=== PATIENT | male | born 1935 | race Caucasian/White ===

== ENCOUNTER 2018-04-27 17:04 | Inpatient (IN) | payer MEDICARE, OTHER, MEDICAID ==
[2018-04-27] MEDS ORDERED: Sodium Chloride 0.9% 5 ML Syringe FLUSH PRN ×2 (17:12→18:59)
--- NOTE | 2018-04-27 17:18 | EDM.PDOC ---
ED HPI GENERAL MEDICAL PROBLEM - General Chief Complaint: General Stated Complaint: LETHARGIC Time Seen by Provider: 04/27/18 17:05 Source of Information: Reports: EMS, Long-Term Records History Limitations: Reports: Altered Mental Status - History of Present Illness INITIAL COMMENTS - FREE TEXT/NARRATIVE: 82 YO WM with PMH of Dementia, Atrial Fib, and NIDDM sent to ER from assisted living facility with concerns for low blood pressure and lethargy. BP at assisted living facility 80's/50's per report. Pt appears lethargic per INTERMEDIATE. Pt has no complaints in ER. Pt is alert but disoriented to time, place and date. Pt doesn't appear to be in any distress. Pt has no obvious focal neurological deficit. Pt is unable to ambulate or [facility] Onset: Unknown/Unsure Location: Reports: Generalized Improves with: Reports: None Worsens with: Reports: None Associated Symptoms: Reports: Confusion, Weakness. Denies: Cough, Fever/Chills , Nausea/Vomiting, Shortness of Breath - Related Data Allergies Allergy/AdvReac Type Severity Reaction Status Date / Time No Known Allergies Allergy Verified 12/21/13 11:49 Home Meds: Home Meds Aspirin [Leigha Chewable Aspirin] 81 mg PO DAILY 12/21/13 [History] Blood Sugar Diagnostic [Freestyle Test Strips] 1 strip PERCUT DAILY 12/21/13 [ History] Lisinopril 20 mg PO BID 12/21/13 [History] amLODIPine Besylate [Amlodipine Besylate] 7.5 mg PO DAILY 12/21/13 [History] metFORMIN [Glucophage] 850 mg PO BIDAC 12/21/13 [History] Metoprolol Succinate 25 mg PO DAILY #30 tab.sr.24h 12/22/13 [Rx] Metoprolol Succinate 50 mg PO DAILY #30 tab.er.24h 12/22/13 [Rx] risperiDONE [RisperiDAL] 0.125 mg PO BID #90 tab 12/22/13 [Rx] Cephalexin [Keflex] 500 mg PO Q6H #40 cap 04/27/18 [Rx] ED ROS GENERAL - Review of Systems Review Of Systems: See Below Constitutional: Reports: Weakness HEENT: Reports: No Symptoms Respiratory: Reports: No Symptoms Cardiovascular: Reports: No Symptoms Endocrine: Reports: No Symptoms GI/Abdominal: Reports: No Symptoms : Reports: No Symptoms Musculoskeletal: Reports: No Symptoms Skin: Reports: No Symptoms Neurological: Reports: Confusion, Weakness Psychiatric: Reports: Confusion Hematologic/Lymphatic: Reports: No Symptoms Immunologic: Reports: No Symptoms ED EXAM, NEURO - Physical Exam Exam: See Below Exam Limited By: Altered Mental Status General Appearance: Alert, WD/WN, No Apparent Distress Eye Exam: Bilateral Eye: EOMI, PERRL Head Exam: Atraumatic, Normocephalic Neck: Normal Inspection, Supple, Non-Tender, Full Range of Motion Respiratory/Chest: No Respiratory Distress, Lungs Clear, Normal Breath Sounds, No Accessory Muscle Use, Chest Non-Tender Cardiovascular: Normal Peripheral Pulses, Regular Rate, Rhythm, No Edema, No Gallop, No JVD, No Murmur, No Rub GI/Abdominal: Normal Bowel Sounds, Soft, Non-Tender, No Organomegaly, No Distention, No Abnormal Bruit, No Mass Neurological: Alert, Normal Mood/Affect, CN II-XII Intact, Normal Plantar Flexion, Normal Reflexes, No Motor/Sensory Deficits. No: Oriented x 3 Back Exam: Normal Inspection, Full Range of Motion, NT Extremities: Normal Inspection, Normal Range of Motion, Non-Tender, No Pedal Edema, Normal Capillary Refill Psychiatric: Normal Mood, Flat Affect Skin Exam: Warm, Dry, Intact, Normal Color, No Rash EKG INTERPRETATION EKG Date: 04/27/18 Time: 17:25 Rhythm: NSR Rate (Beats/Min): 47 [place]: Normal P-Wave: Present QRS: Normal ST-T: Normal QT: Normal Comparison: NA - No Prior EKG Course - Vital Signs Last Recorded V/S: Last Vital Signs Temp 36.9 C 04/27/18 17:05 Pulse 49 L 04/27/18 17:05 Resp 13 04/27/18 17:05 BP 116/51 L 04/27/18 17:05 Pulse Ox 96 04/27/18 17:05 - Orders/Labs/Meds Orders: Active Orders 24 hr Category Date Time Status Cardiac Monitoring [RC] . DIRECTED Care 04/27/18 17:12 Active EKG Documentation Completion [RC] ASDIRECTED Care 04/27/18 17:12 Active Orthostatic Vital Signs [RC] ASDIRECTED Care 04/27/18 17:13 Active Peripheral IV Care [RC] . DIRECTED Care 04/27/18 17:12 Active Chest 1V Frontal [CR] Stat Exams 04/27/18 17:11 Taken Head wo Cont [CT] Stat Exams 04/27/18 17:11 Taken URINALYSIS W/MICROSCOPIC [UA W/MICROSCOPIC] [URIN] Stat Lab 04/27/18 18:00 Ordered URINALYSIS W/MICROSCOPIC [UA W/MICROSCOPIC] [URIN] Stat Lab 04/27/18 18:00 Ordered Sodium Chloride 0.9% [Syrex Flush] Med 04/27/18 17:12 Active 5 ml FLUSH Q8HR PRN Peripheral IV Insertion Adult [OM.PC] Routine Oth 04/27/18 17:12 Ordered EKG 12 Lead [EK] Routine Ther 04/27/18 17:11 Ordered Medication Orders Sodium Chloride (Syrex Flush) 5 ml FLUSH Q8HR PRN PRN Reason: Keep Vein Open Labs: Laboratory Tests 04/27/18 04/27/18 04/27/18 Range/Units 17:25 17:25 18:00 WBC 7.4 (5.0-10.0) 10^3/uL RBC 3.73 L (4.50-6.00) 10^6/uL Hgb 11.8 L (13.0-17.0) g/dL Hct 34.0 L (40.0-52.0) % MCV 91.1 (82.0-92.0) fL MCH 31.7 H (27.0-31.0) pg MCHC 34.8 (32.0-36.0) g/dL RDW 12.7 (11.5-14.5) % Plt Count 152 (150-300) 10^3/uL MPV 7.9 (7.4-10.4) fL Neut % (Auto) 58.4 (50.0-70.0) % Lymph % (Auto) 27.3 (20.0-40.0) % [place] % (Auto) 10.6 H (2.0-8.0) % Eos % (Auto) 2.9 (1.0-3.0) % Baso % (Auto) 0.8 (0.0-1.0) % Neut # (Auto) 4.3 (2.5-7.0) 10^3/uL Lymph # (Auto) 2.0 (1.0-4.0) 10^3/uL [place] # (Auto) 0.8 (0.1-0.8) 10^3/uL Eos # (Auto) 0.2 (0.1-0.3) 10^3/uL Baso # (Auto) 0.1 (0.0-0.1) 10^3/uL Sodium 141 (136-145) mmol/L Potassium 4.2 (3.3-5.3) mmol/L Chloride 103 (98-115) mmol/L Carbon Dioxide 32.1 H (21.0-32.0) mmol/L Anion Gap 10.1 (5-15) mmol/L BUN 54 H* D (6-25) mg/dL Creatinine 2.02 H (0.51-1.17) mg/dL Est Cr Clr Drug Dosing 26.36 mL/min Estimated GFR (MDRD) 32 mL/min Glucose 87 (70-200) mg/dL Calcium 9.0 (8.7-10.3) mg/dL Total Bilirubin 0.4 (0.2-1.0) mg/dL AST 13 L (15-37) U/L ALT 25 (12-78) U/L Alkaline Phosphatase 55 (46-116) IU/L Creatine Kinase 86 (26-276) U/L CK-MB (CK-2) 3.30 (0.00-4.30) ng/mL Troponin I 0.04 (0.00-0.070) ng/mL B-Natriuretic Peptide 16 (0-100) pg/mL Total Protein 7.2 (6.4-8.2) g/dL Albumin 3.45 (3.00-4.80) g/dL Urine Color Yellow (YELLOW) Urine Appearance Cloudy H (CLEAR) Urine pH 6.0 (5.0-9.0) Ur Specific [place] 1.015 (1.005-1.030) Urine Protein 30 H (NEGATIVE) mg/dL Urine Glucose (UA) Negative (NEGATIVE) mg/dL Urine Ketones Trace H (NEGATIVE) mg/dL Urine Occult Blood Trace-intact H (NEGATIVE) Urine Nitrite Negative (NEGATIVE) Urine Bilirubin Negative (NEGATIVE) Urine Urobilinogen 0.2 (0.2-1.0) E.U./dL Ur Leukocyte Esterase Large H (NEGATIVE) Meds: Medications Generic Name Dose Route Start Last Admin Trade Name Freq PRN Reason Stop Dose Admin Sodium Chloride 5 ml 04/27/18 17:12 Syrex Flush FLUSH Q8HR PRN Keep Vein Open - Radiology Interpretation Free Text/Narrative:: CXR- NAD CT Head- acute right frontal lobe intraparenchymal hematoma Departure - Departure Time of Disposition: 18:57 Disposition: Admitted As Inpatient 66 Condition: Fair Clinical Impression: UTI, Urinary tract infectious disease, Renal insufficiency, mild Intraparenchymal hematoma of brain Qualifiers: Encounter type: initial encounter Laterality: right Loss of consciousness presence/duration: without LOC Qualified Code(s): S06.340A - Traumatic hemorrhage of right cerebrum without loss of consciousness, initial encounter - Discharge Information Prescriptions: Cephalexin [Keflex] 500 mg PO Q6H #40 cap Instructions: Urinary Tract Infection, Adult, [id number], Chronic Kidney Disease, Adult Referrals: PCP,Unknown [Primary Care Provider] - Anat Schultz, SECURITIES CONSULTANT [Nurse Practitioner] - - My Orders Last 24 Hours: My Active Orders 04/27/18 17:11 Chest 1V Frontal [CR] Stat Head wo Cont [CT] Stat EKG 12 Lead [EK] Routine 04/27/18 17:12 Cardiac Monitoring [RC] . DIRECTED EKG Documentation Completion [RC] ASDIRECTED Peripheral IV Care [RC] . DIRECTED Sodium Chloride 0.9% [Syrex Flush] 5 ml FLUSH Q8HR PRN Peripheral IV Insertion Adult [OM.PC] Routine 04/27/18 17:13 Orthostatic Vital Signs [RC] ASDIRECTED 04/27/18 18:00 URINALYSIS W/MICROSCOPIC [UA W/MICROSCOPIC] [URIN] Stat URINALYSIS W/MICROSCOPIC [UA W/MICROSCOPIC] [URIN] Stat - Assessment/Plan Last 24 Hours: My Active Orders 04/27/18 17:11 Chest 1V Frontal [CR] Stat Head wo Cont [CT] Stat EKG 12 Lead [EK] Routine 04/27/18 17:12 Cardiac Monitoring [RC] . DIRECTED EKG Documentation Completion [RC] ASDIRECTED Peripheral IV Care [RC] . DIRECTED Sodium Chloride 0.9% [Syrex Flush] 5 ml FLUSH Q8HR PRN Peripheral IV Insertion Adult [OM.PC] Routine 04/27/18 17:13 Orthostatic Vital Signs [RC] ASDIRECTED 04/27/18 18:00 URINALYSIS W/MICROSCOPIC [UA W/MICROSCOPIC] [URIN] Stat URINALYSIS W/MICROSCOPIC [UA W/MICROSCOPIC] [URIN] Stat Assessment:: 1.1.7cm right frontal interparenchymal hematoma 2. UTI 3. Lethargic 4. Acute Renal insufficiency Plan: 1. Discussed case with neurosurgery [facility] Huber- Dr Hughes- needs repeat head CT in 12 hours for further evaluation 2. Keflex 500mg PO Q6 x 10 days for UTI 3. serial head CT head to evaluate progression of head injury 4. IVF NS @125cc/hr
[2018-04-27 17:58] LABS: ANION GAP 10.1 mmol/L (5-15)
[2018-04-27] MEDS ORDERED: cefTRIAXone 1 GM Vial IVPUSH ONE (18:05)
[2018-04-27] MEDS ORDERED: Water For Injection,Bacteriostatic 30 ML MDV ONE (18:09)
[2018-04-27] MEDS ORDERED: Sodium Chloride 0.9% 1,000 ML IV SCH (19:00)
[2018-04-27] MEDS ORDERED: Carboxymethylcellulose Sodium 0.5% Ophth Soln 15 ML Bottle EYEBOTH PRN (19:46)
--- NOTE | 2018-04-27 21:26 | PCM.HP ---
H&P History of Present Illness - General Date of Service: 04/27/18 Admit Problem/Dx: Admission Diagnosis/Problem Admission Diagnosis/Problem Intraparenchymal hemorrhage of brain Source of Information: Old Records, Provider, RN History Limitations: Reports: Altered Mental Status, Uncooperative - History of Present Illness Initial Comments - Free Text/Narative: This is an 82 year old male who presented to the ED with concerns of lethargy and hypotension. The patient resides at [facility], an assisted living facility. Per their report patient became more lethargic yesterday and today. The patient suffered a fall 1-1.5 weeks ago and received a bruise to the right chin and skin tear to the right elbow. The patient has a known history of hypertension, alzheimer's dementia, and non-insulin dependent type 2 diabetes mellitus. Per son's report he walks with a walker. The patient was found to have a UTI, acute renal insufficiency, and a right frontal intraparenchymal hematoma. He was admitted for further treatment and monitoring. - Related Data Allergies/Adverse Reactions: Allergies Allergy/AdvReac Type Severity Reaction Status Date / Time No Known Allergies Allergy Verified 04/28/18 16:31 Home Medications: Home Meds Aspirin [Leigha Chewable Aspirin] 81 mg PO DAILY 12/21/13 [History] Lisinopril 20 mg PO DAILY 12/21/13 [History] Brimonidine Tartrate [Brimonidine Tartrate 0.2% Ophth Soln] 1 drop EYEBOTH BID@ 0830,1800 04/27/18 [History] Cholecalciferol (Vitamin D3) [Vitamin D3] 2,000 unit PO DAILY 04/27/18 [History] Donepezil HCl [Aricept] 10 mg PO DAILY@179904/27/18 [History] Finasteride [Proscar] 5 mg PO DAILY 04/27/18 [History] Hydrochlorothiazide 12.5 mg PO DAILY 04/27/18 [History] Memantine HCl [Namenda] 10 mg PO BID@0830,1800 04/27/18 [History] Propylene Glycol/Peg 400 [Lubricant Eye Drops] 1 drop EYEBOTH QID PRN 04/27/18 [ History] risperiDONE [Risperdal] 0.25 mg PO DAILY@179904/27/18 [History] risperiDONE [RisperiDAL] 0.125 mg PO DAILY 04/27/18 [History] Past Medical History HEENT History: Reports: Glaucoma, Hard of Hearing Cardiovascular History: Reports: Hypertension Neurological History: Reports: Alzheimers Disease Psychiatric History: Reports: Alzheimers Disease Social & Family History - Family History Family Medical History: Unobtainable - Tobacco Use Smoking Status *Q: Never Smoker Second Hand Smoke Exposure: No - Caffeine Use Caffeine Use: Reports: None - Recreational Drug Use Recreational Drug Use: No H&P Review of Systems - Review of Systems: Review Of Systems: Unable To Obtain Free Text/Narrative: Patient uncooperative during ROS. Does not answer questions. Asks me to leave him alone. He will close his eyes and rub his forehead. Exam - Exam Exam: See Below - Vital Signs Vital Signs: Last Vital Signs Temp 98.4 F 04/27/18 17:05 Pulse 49 L 04/27/18 17:05 Resp 13 04/27/18 17:05 BP 116/51 L 04/27/18 17:05 Pulse Ox 96 04/27/18 18:59 Orthostatic Blood Pressure [ 150/68 Sitting] Orthostatic Blood Pressure [ 136/74 Supine] Weight: 190 lb - Exam Quality Assessment: No: Supplemental Oxygen, DVT Prophylaxis (Current right frontal lobe bleed) General: Alert. No: Oriented (Not oriented to person, place, or time), Cooperative, Mild Distress HEENT: Conjunctiva Clear, Pupils Equal. No: Hearing Intact, Pupils Reactive ( pin point pupils, not reactive to light), TMs Clear (refused per patient, slaps hand away when trying to look) Neck: Supple, Trachea Midline Lungs: Clear to Auscultation, Normal Respiratory Effort Cardiovascular: Regular Rhythm, Normal S1, Normal S2, Bradycardia GI/Abdominal Exam: Normal Bowel Sounds, Soft, Non-Tender Extremities: No: Pedal Edema Skin: Warm, Dry, Ecchymosis (right lower jaw line), Wound (Skin tear scabbed over to right elbow) Neurological: Strength Equal Bilateral (upper strength 3/5 bilaterally). No: Cranial Nerves Intact (unable to fully assess due to lack of patient cooperation ; equal smile; pupils equal size, however not able to see reaction; upper extremity strength equal, however weak) Neuro Extensive - Mental Status: Alert, Disorientation to Person, Disorientation to Place, Disorientation to Time, Opens Eyes to Commands ( intermittently), Slow Response to Commands. No: Oriented x3, Normal Mood/Affect , Normal Cognition, Memory Intact Neuro Extensive - Motor, Sensory, Reflexes: Abnormal Gait (slight dragging noted to right foot while walking with a walker) Psychiatric: Alert, Labile Mood, Agitated. No: Normal Affect, Normal Mood - Patient Data Lab Results Last 24 hrs: Laboratory Results - last 24 hr 04/27/18 04/27/18 04/27/18 Range/Units 17:25 17:25 18:00 WBC 7.4 (5.0-10.0) 10^3/uL RBC 3.73 L (4.50-6.00) 10^6/uL Hgb 11.8 L (13.0-17.0) g/dL Hct 34.0 L (40.0-52.0) % MCV 91.1 (82.0-92.0) fL MCH 31.7 H (27.0-31.0) pg MCHC 34.8 (32.0-36.0) g/dL RDW 12.7 (11.5-14.5) % Plt Count 152 (150-300) 10^3/uL MPV 7.9 (7.4-10.4) fL Neut % (Auto) 58.4 (50.0-70.0) % Lymph % (Auto) 27.3 (20.0-40.0) % [place] % (Auto) 10.6 H (2.0-8.0) % Eos % (Auto) 2.9 (1.0-3.0) % Baso % (Auto) 0.8 (0.0-1.0) % Neut # (Auto) 4.3 (2.5-7.0) 10^3/uL Lymph # (Auto) 2.0 (1.0-4.0) 10^3/uL [place] # (Auto) 0.8 (0.1-0.8) 10^3/uL Eos # (Auto) 0.2 (0.1-0.3) 10^3/uL Baso # (Auto) 0.1 (0.0-0.1) 10^3/uL Sodium 141 (136-145) mmol/L Potassium 4.2 (3.3-5.3) mmol/L Chloride 103 (98-115) mmol/L Carbon Dioxide 32.1 H (21.0-32.0) mmol/L Anion Gap 10.1 (5-15) mmol/L BUN 54 H* D (6-25) mg/dL Creatinine 2.02 H (0.51-1.17) mg/dL Est Cr Clr Drug Dosing 26.36 mL/min Estimated GFR (MDRD) 32 mL/min Glucose 87 (70-200) mg/dL Calcium 9.0 (8.7-10.3) mg/dL Total Bilirubin 0.4 (0.2-1.0) mg/dL AST 13 L (15-37) U/L ALT 25 (12-78) U/L Alkaline Phosphatase 55 (46-116) IU/L Creatine Kinase 86 (26-276) U/L CK-MB (CK-2) 3.30 (0.00-4.30) ng/mL Troponin I 0.04 (0.00-0.070) ng/mL B-Natriuretic Peptide 16 (0-100) pg/mL Total Protein 7.2 (6.4-8.2) g/dL Albumin 3.45 (3.00-4.80) g/dL Specimen Type Ur[place] Urine Color Yellow (YELLOW) Urine Appearance Cloudy H (CLEAR) Urine pH 6.0 (5.0-9.0) Ur Specific [place] 1.015 (1.005-1.030) Urine Protein 30 H (NEGATIVE) mg/dL Urine Glucose (UA) Negative (NEGATIVE) mg/dL Urine Ketones Trace H (NEGATIVE) mg/dL Urine Occult Blood Trace-intact H (NEGATIVE) Urine Nitrite Negative (NEGATIVE) Urine Bilirubin Negative (NEGATIVE) Urine Urobilinogen 0.2 (0.2-1.0) E.U./dL Ur Leukocyte Esterase Large H (NEGATIVE) Urine RBC 10-20 H /HPF Urine WBC Packed /HPF Ur Epithelial Cells Rare /LPF Urine Bacteria Many H (NONE TO FEW) /HPF Result Diagrams: 04/28/18 07:05 18 07:05 EKG INTERPRETATION EKG Date: 04/27/18 Time: 17:25 Rhythm: Other (marked sinus bradycardia) Rate (Beats/Min): 47 [place]: Normal P-Wave: Present QRS: Normal ST-T: Normal QT: Normal Comparison: No Change Problem List Initiated/Reviewed/Updated: Yes Orders Last 24hrs: Active Orders 24 hr Category Date Time Status Patient Status [ADT] Routine ADT 04/27/18 18:59 Ordered Cardiac Monitoring [RC] . DIRECTED Care 04/27/18 17:12 Inactive Communication Order [RC] ROUTINE Care 04/27/18 19:49 Active Intake and Output Strict [RC] ASDIRECTED Care 04/27/18 19:49 Active Neuro Check [RC] Q2HR Care 04/27/18 19:46 Active Oxygen Therapy [RC] PRN Care 04/27/18 18:59 Active Peripheral IV Care [RC] . DIRECTED Care 04/27/18 19:01 Active Up With Assistance [RC] ASDIRECTED Care 04/27/18 18:59 Active VTE/DVT Education [RC] PER UNIT ROUTINE Care 04/27/18 18:59 Active Vital Signs [RC] Q1H Care 04/27/18 18:59 Inactive Vital Signs [RC] Q2H Care 04/27/18 19:46 Active 2 Gram Sodium Diet [DIET] Diet 04/28/18 Breakfast Active Chest 1V Frontal [CR] Stat Exams 04/27/18 17:11 Taken Head wo Cont [CT] Stat Exams 04/27/18 17:11 Taken Head wo Cont [CT] Timed Exams 04/28/18 07:00 Ordered BASIC METABOLIC PANEL,BMP [CHEM] AM Lab 04/28/18 05:11 Ordered CBC WITH AUTO DIFF [HEME] AM Lab 04/28/18 05:11 Ordered CULTURE URINE [RM] Stat Lab 04/27/18 18:00 Received Brimonidine Tartrate [Brimonidine Tartrate 0.2% Ophth Med 04/27/18 21:00 Active Soln] 0 ml EYEBOTH BID Carboxymethylcellulose Sodium [Refresh Tears 0.5%] Med 04/27/18 19:46 Active 0 ml EYEBOTH QID PRN Cephalexin [Keflex] Med 04/28/18 09:00 Active 500 mg PO Q6HR Cholecalciferol (Vitamin D3) [Vitamin D3] Med 04/28/18 09:00 Active 2,000 units PO DAILY Donepezil [Aricept] Med 04/28/18 18:00 Active 10 mg PO DAILY@1800 Finasteride [Proscar] Med 04/28/18 09:00 Active 5 mg PO DAILY Sodium Chloride 0.9% [Normal Saline] 1,000 ml Med 04/27/18 19:00 Active IV ASDIRECTED Sodium Chloride 0.9% [Syrex Flush] Med 04/27/18 18:59 Active 5 ml FLUSH Q8HR PRN risperiDONE [RisperiDAL] Med 04/28/18 09:00 Active 0.125 mg PO DAILY risperiDONE [RisperiDAL] Med 04/28/18 18:00 Active 0.25 mg PO DAILY@1800 Peripheral IV Insertion Adult [OM.PC] Routine Oth 04/27/18 18:59 Ordered Resuscitation Status Routine Resus Stat 04/27/18 18:59 Ordered EKG 12 Lead [EK] Routine Ther 04/27/18 17:11 Stop Req Medication Orders Artificial Tears (Refresh Tears 0.5%) 0 ml EYEBOTH QID PRN PRN Reason: Dry Eyes Brimonidine Tartrate (Brimonidine Tartrate 0.2% Ophth Soln) 0 ml EYEBOTH BID JACY Cephalexin (Keflex) 500 mg PO Q6HR JACY Cholecalciferol (Vitamin D3) 2,000 units PO DAILY JACY Donepezil HCl (Aricept) 10 mg PO DAILY@1800 JACY Finasteride (Proscar) 5 mg PO DAILY JACY Sodium Chloride (Normal Saline) 1,000 mls @ 125 mls/hr IV ASDIRECTED JACY Risperidone (Risperidal) 0.25 mg PO DAILY@1800 JACY Risperidone (Risperidal) 0.125 mg PO DAILY JACY Sodium Chloride (Syrex Flush) 5 ml FLUSH Q8HR PRN PRN Reason: Keep Vein Open Assessment/Plan Comment:: HPI: This is an 82 year old male who presented to the ED with concerns of lethargy and hypotension. The patient resides at [facility], an assisted living facility. Per their report patient became more lethargic yesterday and today. The patient suffered a fall 1-1.5 weeks ago and received a bruise to the right chin and skin tear to the right elbow. The patient has a known history of hypertension, alzheimer's dementia, and non-insulin dependent type 2 diabetes mellitus. Per son's report he walks with a walker. The patient was found to have a UTI, acute renal insufficiency, and a right frontal intraparenchymal hematoma. He was admitted for further treatment and monitoring. Pertinent ED workup: Head CT noted 9 x 17 x 10 mm acute right frontal lobe intraparenchymal hematoma. Chest x-ray-no acute processes EKG-sinus bradycardia at 47 bpm; appears unchanged from previous EKG (April 2017 ) that noted marked sinus bradycardia at 46 bpm with LAD, and low voltage QRS UA positive for many bacteria; culture pending BUN 54, creatinine 2.02, GFR 32 Hgb 11.8-appears at baseline Troponin 0.04 Normal neuro examination noted in ED. PRIMARY ASSESSMENT/PLAN: Acute right frontal lobe intraparenchymal hematoma. ED provider reviewed patient case with [place] neurosurgeon, Dr. Hughes, who advises repeat non- contrast head CT in 6 hours. Neurochecks every 2 hours, however this will be difficult due to patient's uncooperative state. Holding baby aspirin at present. Question acute delirium. Patient has known history of Alzheimer's dementia. Upon review of chart, it appears patient has been sun-downing and given the time of exam this is how he is acting, however it may be worsened due to current UTI and brain hemorrhage. He has been reported as being able to care for himself at the assisted living and walks with a walker. He is able to walk with a walker and 1 assist at present, however his current mental status is quite poor. UTI. UA positive for many bacteria with urine culture pending. Patient received 1 gm IV rocephin in ER. Will start keflex 500 mg po every 6 hours tomorrow. Acute renal insufficiency. Renal indices elevated as noted above, however when review of Epic chart done last labs were in April 2017 that noted a BUN 30, creatinine 1.69, and GFR of 39. NS at 125 mL/hr. Accurate I & O. Holding HCTZ, lisinopril, and namenda due to decreased renal function. Repeat BMP in AM. Alzheimer's dementia. Continue aricept and risperdal. Holding namenda due to CKD. Social service consult placed. SECONDARY ASSESSMENT/PLAN: Hypertension, stable. Will continue to monitor. Holding lisinopril and HCTZ at present. Type 2 diabetes mellitus. Glucose 87 on panel. Not on any medications for this. 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 Primary open angle glaucoma. Continue eye drops. BPH. Continue finasteride. DVT prophylaxis. None due to current frontal lobe hematoma. Overall treatment plan: The patient will be kept in for observation of his neurological function and repeat head CT in [address] Will provide IV fluids and repeat renal indices in the AM. Code status: Discussed code status with son, Migel Langford, who states he knows patient wants to be a DNR but they have not been able to get the patient to sign papers when he is lucid. Son elects to allow patient compressions, defibrillation, and medications to restart the heart, but no intubation. Son is agreeable to sending to neurosurgery if needed. Discussion held with son for approximately 22 minutes regarding code status and patient's current health state.
[2018-04-27] MEDS: Brimonidine 0.2% Ophth Soln 15 ML Bottle EYEBOTH SCH (21:59)
[2018-04-27] MEDS ORDERED: risperiDONE 0.25 MG Tab ONE (22:17)
[2018-04-27] MEDS ORDERED: Haloperidol Lactate 5 MG/ML SDV IM ONE ×3 (22:45→23:00)
[2018-04-27] MEDS ORDERED: Haloperidol Lactate 5 MG/ML SDV ONE ×2 (22:45→23:03)
[2018-04-28] MEDS: risperiDONE 0.25 MG Tab PO SCH ×3 (02:16→19:20)
[2018-04-28] MEDS ORDERED: Haloperidol Lactate 5 MG/ML SDV IM ONE ×3 (07:29→09:21)
[2018-04-28 08:13] LABS: ANION GAP 11.4 mmol/L (5-15)
--- NOTE | 2018-04-28 09:58 | PCM.PN ---
- General Info Date of Service: 04/28/18 Subjective Update: Able to complete review of systems due to the patient's altered mental status and uncooperative state - Patient Data Vitals - Most Recent: Last Vital Signs Temp 98.5 F 04/28/18 06:00 Pulse 50 L 04/28/18 06:00 Resp 16 04/28/18 06:00 BP 140/71 04/28/18 06:00 Pulse Ox 98 04/28/18 06:00 Orthostatic Blood Pressure [ 150/68 Sitting] Orthostatic Blood Pressure [ 136/74 Supine] Weight - Most Recent: 190 lb I&O - Last 24 Hours: Intake & Output 04/27/18 04/28/18 04/28/18 22:59 06:59 14:59 Intake Total 200 150 Output Total 100 Balance 100 150 Lab Results Last 24 Hours: Laboratory Results - last 24 hr 04/27/18 04/27/18 04/27/18 Range/Units 17:25 17:25 18:00 WBC 7.4 (5.0-10.0) 10^3/uL RBC 3.73 L (4.50-6.00) 10^6/uL Hgb 11.8 L (13.0-17.0) g/dL Hct 34.0 L (40.0-52.0) % MCV 91.1 (82.0-92.0) fL MCH 31.7 H (27.0-31.0) pg MCHC 34.8 (32.0-36.0) g/dL RDW 12.7 (11.5-14.5) % Plt Count 152 (150-300) 10^3/uL MPV 7.9 (7.4-10.4) fL Neut % (Auto) 58.4 (50.0-70.0) % Lymph % (Auto) 27.3 (20.0-40.0) % [place] % (Auto) 10.6 H (2.0-8.0) % Eos % (Auto) 2.9 (1.0-3.0) % Baso % (Auto) 0.8 (0.0-1.0) % Neut # (Auto) 4.3 (2.5-7.0) 10^3/uL Lymph # (Auto) 2.0 (1.0-4.0) 10^3/uL [place] # (Auto) 0.8 (0.1-0.8) 10^3/uL Eos # (Auto) 0.2 (0.1-0.3) 10^3/uL Baso # (Auto) 0.1 (0.0-0.1) 10^3/uL Sodium 141 (136-145) mmol/L Potassium 4.2 (3.3-5.3) mmol/L Chloride 103 (98-115) mmol/L Carbon Dioxide 32.1 H (21.0-32.0) mmol/L Anion Gap 10.1 (5-15) mmol/L BUN 54 H* D (6-25) mg/dL Creatinine 2.02 H (0.51-1.17) mg/dL Est Cr Clr Drug Dosing 26.36 mL/min Estimated GFR (MDRD) 32 mL/min Glucose 87 (70-200) mg/dL Calcium 9.0 (8.7-10.3) mg/dL Total Bilirubin 0.4 (0.2-1.0) mg/dL AST 13 L (15-37) U/L ALT 25 (12-78) U/L Alkaline Phosphatase 55 (46-116) IU/L Creatine Kinase 86 (26-276) U/L CK-MB (CK-2) 3.30 (0.00-4.30) ng/mL Troponin I 0.04 (0.00-0.070) ng/mL B-Natriuretic Peptide 16 (0-100) pg/mL Total Protein 7.2 (6.4-8.2) g/dL Albumin 3.45 (3.00-4.80) g/dL Specimen Type [place] Urine Color Yellow (YELLOW) Urine Appearance Cloudy H (CLEAR) Urine pH 6.0 (5.0-9.0) Ur Specific [place] 1.015 (1.005-1.030) Urine Protein 30 H (NEGATIVE) mg/dL Urine Glucose (UA) Negative (NEGATIVE) mg/dL Urine Ketones Trace H (NEGATIVE) mg/dL Urine Occult Blood Trace-intact H (NEGATIVE) Urine Nitrite Negative (NEGATIVE) Urine Bilirubin Negative (NEGATIVE) Urine Urobilinogen 0.2 (0.2-1.0) E.U./dL Ur Leukocyte Esterase Large H (NEGATIVE) Urine RBC 10-20 H /HPF Urine WBC Packed /HPF Ur Epithelial Cells Rare /LPF Urine Bacteria Many H (NONE TO FEW) /HPF 04/28/18 04/28/18 Range/Units 07:05 07:05 WBC 7.4 (5.0-10.0) 10^3/uL RBC 4.01 L (4.50-6.00) 10^6/uL Hgb 12.2 L (13.0-17.0) g/dL Hct 36.7 L (40.0-52.0) % MCV 91.6 (82.0-92.0) fL MCH 30.4 (27.0-31.0) pg MCHC 33.2 (32.0-36.0) g/dL RDW 12.2 (11.5-14.5) % Plt Count 162 (150-300) 10^3/uL MPV 8.2 (7.4-10.4) fL Neut % (Auto) 66.1 (50.0-70.0) % Lymph % (Auto) 23.9 (20.0-40.0) % [place] % (Auto) 7.6 (2.0-8.0) % Eos % (Auto) 2.0 (1.0-3.0) % Baso % (Auto) 0.4 (0.0-1.0) % Neut # (Auto) 4.9 (2.5-7.0) 10^3/uL Lymph # (Auto) 1.8 (1.0-4.0) 10^3/uL [place] # (Auto) 0.6 (0.1-0.8) 10^3/uL Eos # (Auto) 0.1 (0.1-0.3) 10^3/uL Baso # (Auto) 0.0 (0.0-0.1) 10^3/uL Sodium 143 (136-145) mmol/L Potassium 4.5 (3.3-5.3) mmol/L Chloride 103 (98-115) mmol/L Carbon Dioxide 33.1 H (21.0-32.0) mmol/L Anion Gap 11.4 (5-15) mmol/L BUN 43 H (6-25) mg/dL Creatinine 1.62 H (0.51-1.17) mg/dL Est Cr Clr Drug Dosing 32.87 mL/min Estimated GFR (MDRD) 41 mL/min Glucose 113 (70-200) mg/dL Calcium 9.4 (8.7-10.3) mg/dL Total Bilirubin (0.2-1.0) mg/dL AST (15-37) U/L ALT (12-78) U/L Alkaline Phosphatase (46-116) IU/L Creatine Kinase (26-276) U/L CK-MB (CK-2) (0.00-4.30) ng/mL Troponin I (0.00-0.070) ng/mL B-Natriuretic Peptide (0-100) pg/mL Total Protein (6.4-8.2) g/dL Albumin (3.00-4.80) g/dL Specimen Type Urine Color (YELLOW) Urine Appearance (CLEAR) Urine pH (5.0-9.0) Ur Specific [place] (1.005-1.030) Urine Protein (NEGATIVE) mg/dL Urine Glucose (UA) (NEGATIVE) mg/dL Urine Ketones (NEGATIVE) mg/dL Urine Occult Blood (NEGATIVE) Urine Nitrite (NEGATIVE) Urine Bilirubin (NEGATIVE) Urine Urobilinogen (0.2-1.0) E.U./dL Ur Leukocyte Esterase (NEGATIVE) Urine RBC /HPF Urine WBC /HPF Ur Epithelial Cells /LPF Urine Bacteria (NONE TO FEW) /HPF Med Orders - Current: Current Medications Artificial Tears (Refresh Tears 0.5%) 0 ml EYEBOTH QID PRN PRN Reason: Dry Eyes Brimonidine Tartrate (Brimonidine Tartrate 0.2% Ophth Soln) 0 ml EYEBOTH BID [facility] Last Admin: 04/27/18 21:59 Dose: Not Given Cephalexin (Keflex) 500 mg PO Q6HR [facility] Cholecalciferol (Vitamin D3) 2,000 units PO DAILY [facility] Donepezil HCl (Aricept) 10 mg PO DAILY@1800 [facility] Finasteride (Proscar) 5 mg PO DAILY [facility] Sodium Chloride (Normal Saline) 1,000 mls @ 125 mls/hr IV ASDIRECTED [facility] Risperidone (Risperidal) 0.25 mg PO DAILY@1800 [facility] Last Admin: 04/28/18 02:16 Dose: 0.25 mg Risperidone (Risperidal) 0.125 mg PO DAILY [facility] Sodium Chloride (Syrex Flush) 5 ml FLUSH Q8HR PRN PRN Reason: Keep Vein Open Discontinued Medications Ceftriaxone Sodium (Rocephin) 1 gm IVPUSH ONETIME ONE Stop: 04/27/18 18:06 Last Admin: 04/27/18 18:19 Dose: 1 gm Haloperidol Lactate (Haldol) Confirm Administered Dose 5 mg .ROUTE .STK-MED ONE Stop: 04/27/18 22:46 Last Admin: 04/27/18 23:47 Dose: Not Given Haloperidol Lactate (Haldol) Confirm Administered Dose 5 mg .ROUTE .STK-MED ONE Stop: 04/27/18 23:04 Last Admin: 04/27/18 23:48 Dose: Not Given Haloperidol Lactate (Haldol) 2 mg IM ONETIME ONE Stop: 04/27/18 22:46 Last Admin: 04/27/18 22:50 Dose: 2 mg Haloperidol Lactate (Haldol) 5 mg IM ONETIME ONE Stop: 04/27/18 23:01 Last Admin: 04/28/18 02:04 Dose: Not Given Haloperidol Lactate (Haldol) 2 mg IM ONETIME ONE Stop: 04/27/18 23:01 Last Admin: 04/27/18 23:02 Dose: 2 mg Haloperidol Lactate (Haldol) 2 mg IM ONETIME ONE Stop: 04/28/18 07:30 Last Admin: 04/28/18 07:30 Dose: 2 mg Haloperidol Lactate (Haldol) 2 mg IM ONETIME ONE Stop: 04/28/18 07:53 Last Admin: 04/28/18 08:05 Dose: 2 mg Haloperidol Lactate (Haldol) 2 mg IM ONETIME ONE Stop: 04/28/18 09:22 Last Admin: 04/28/18 09:15 Dose: 2 mg Risperidone (Risperidal) Confirm Administered Dose 0.25 mg .ROUTE .STK-MED ONE Stop: 04/27/18 22:18 Last Admin: 04/27/18 23:57 Dose: Not Given Sodium Chloride (Syrex Flush) 5 ml FLUSH Q8HR PRN PRN Reason: Keep Vein Open Last Admin: 04/27/18 18:05 Dose: 5 ml - Exam Quality Assessment: No: Supplemental Oxygen General: Alert, Mild Distress. No: Oriented, Cooperative Lungs: Clear to Auscultation, Normal Respiratory Effort Cardiovascular: Regular Rate, Regular Rhythm Skin: Other (2 cm superficial healing skin abrasion right elbow) Psy/Mental Status: Alert, Agitated - Problem List Review Problem List Initiated/Reviewed/Updated: Yes - Plan Plan:: HPI: This is an 82 year old male who presented to the ED with concerns of lethargy and hypotension. The patient resides at [facility], an assisted living facility. Per their report patient became more lethargic yesterday and today. The patient suffered a fall 1-1.5 weeks ago and received a bruise to the right chin and skin tear to the right elbow. The patient has a known history of hypertension, alzheimer's dementia, and non-insulin dependent type 2 diabetes mellitus. Per son's report he walks with a walker. The patient was found to have a UTI, acute renal insufficiency, and a right frontal intraparenchymal hematoma. He was admitted for further treatment and monitoring. Pertinent ED workup: Head CT noted 9 x 17 x 10 mm acute right frontal lobe intraparenchymal hematoma. Chest x-ray-no acute processes EKG-sinus bradycardia at 47 bpm; appears unchanged from previous EKG (April 2017 ) that noted marked sinus bradycardia at 46 bpm with LAD, and low voltage QRS UA positive for many bacteria; culture pending BUN 54, creatinine 2.02, GFR 32 Hgb 11.8-appears at baseline Troponin 0.04 Normal neuro examination noted in ED. Update this morning, patient acutely agitated, pulled IV out, flailing arms, refusing head CT and refusing gentle commands from staff. Requiring Haldol PRIMARY ASSESSMENT/PLAN: Acute right frontal lobe intraparenchymal hematoma. ED provider reviewed patient case with [place] neurosurgeon, Dr. Hughes, who advises repeat non- contrast head CT in 6 hours. Neurochecks every 2 hours, however this will be difficult due to patient's uncooperative state. Holding baby aspirin at present. Question acute delirium. Patient has known history of Alzheimer's dementia. Upon review of chart, it appears patient has been sundowning and given the time of exam this is how he is acting. He has been reported as being able to care for himself at the assisted living and walks with a walker. He is able to walk with a walker and 1 assist at present, however his current mental status is quite poor. UTI. UA positive for many bacteria with urine culture pending. 1 gm IM rocephin qd until IV restarted or taking PO. Acute renal insufficiency. IV fluids last night however patient's has pulled out IV. We'll hold off for now. Holding HCTZ, lisinopril, and namenda due to decreased renal function. Repeat BMP in AM. Alzheimer's dementia, acute on chronic. Continue aricept and risperdal. Holding namenda due to CKD. Social service consult placed. SECONDARY ASSESSMENT/PLAN: Hypertension, stable. Will continue to monitor. Holding lisinopril and HCTZ at present. Type 2 diabetes mellitus. Adequately controlled by diet. 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 Primary open angle glaucoma. Continue eye drops. BPH. Continue finasteride. DVT prophylaxis. None due to current frontal lobe hematoma. Overall treatment plan: Patient 1:1, continue with Haldol for acute agitation, head CT is able. Continue with neuro checks, rocephin. Code status: Provider special education tutor last night discussed code status with son, Migel Langford, who states he knows patient wants to be a DNR but they have not been able to get the patient to sign papers when he is lucid. Son elects to allow patient compressions and medications to restart the heart, but no intubation. Son is agreeable to sending to neurosurgery if needed.
[2018-04-28] MEDS: Brimonidine 0.2% Ophth Soln 15 ML Bottle EYEBOTH SCH ×2 (10:31→22:21)
[2018-04-28] MEDS: Cephalexin 250 MG Cap PO SCH ×3 (10:31→18:29)
[2018-04-28] MEDS: Cholecalciferol (Vitamin D3) 1,000 Unit Tab PO SCH (10:32)
[2018-04-28] MEDS: Finasteride 5 MG Tab PO SCH (10:32)
[2018-04-28] MEDS: Haloperidol Lactate 5 MG/ML SDV IM PRN ×4 (11:42→21:23)
[2018-04-28] MEDS: cefTRIAXone 1 GM Vial IM SCH (17:45)
[2018-04-28] MEDS: Donepezil 10 MG Tab PO SCH (19:20)
[2018-04-29] MEDS: Cephalexin 250 MG Cap PO SCH ×2 (01:21→06:17)
[2018-04-29] MEDS: Haloperidol Lactate 5 MG/ML SDV IM PRN ×3 (06:16→09:00)
[2018-04-29] MEDS: Cholecalciferol (Vitamin D3) 1,000 Unit Tab PO SCH ×2 (09:00→17:57)
[2018-04-29] MEDS: Brimonidine 0.2% Ophth Soln 15 ML Bottle EYEBOTH SCH ×2 (09:00→22:23)
[2018-04-29] MEDS: Finasteride 5 MG Tab PO SCH ×2 (09:00→17:54)
[2018-04-29] MEDS: risperiDONE 0.25 MG Tab PO SCH (09:00)
[2018-04-29] MEDS ORDERED: Haloperidol Lactate 5 MG/ML SDV IM PRN (09:23)
--- NOTE | 2018-04-29 09:47 | PCM.PN ---
- General Info Date of Service: 04/29/18 Subjective Update: Able to complete review of systems due to the patient's altered mental status and uncooperative state Functional Status: Reports: Urinating (Incontinent). Denies: Tolerating Diet - Patient Data Vitals - Most Recent: Last Vital Signs Temp 99.3 F 04/28/18 22:11 Pulse 62 04/28/18 22:11 Resp 16 04/28/18 22:11 BP 168/64 H 04/28/18 22:11 Pulse Ox 98 04/28/18 11:00 Orthostatic Blood Pressure [ 150/68 Sitting] Orthostatic Blood Pressure [ 136/74 Supine] Weight - Most Recent: 190 lb I&O - Last 24 Hours: Intake & Output 04/28/18 04/29/18 04/29/18 22:59 06:59 14:59 Intake Total 0 0 Balance 0 0 Med Orders - Current: Current Medications Artificial Tears (Refresh Tears 0.5%) 0 ml EYEBOTH QID PRN PRN Reason: Dry Eyes Brimonidine Tartrate (Brimonidine Tartrate 0.2% Ophth Soln) 0 ml EYEBOTH BID [facility] Last Admin: 04/28/18 22:21 Dose: Not Given Ceftriaxone Sodium (Rocephin) 1 gm IM Q24H [facility] Last Admin: 04/28/18 17:45 Dose: 1 gm Cholecalciferol (Vitamin D3) 2,000 units PO DAILY [facility] Last Admin: 04/28/18 10:32 Dose: Not Given Donepezil HCl (Aricept) 10 mg PO DAILY@1800 [facility] Last Admin: 04/28/18 19:20 Dose: Not Given Finasteride (Proscar) 5 mg PO DAILY [facility] Last Admin: 04/28/18 10:32 Dose: Not Given Haloperidol Lactate (Haldol) 2 - 5 mg IM Q1H PRN PRN Reason: Agitation Risperidone (Risperidal) 0.25 mg PO DAILY@1800 [facility] Last Admin: 04/28/18 19:20 Dose: Not Given Risperidone (Risperidal) 0.125 mg PO DAILY [facility] Last Admin: 04/28/18 10:32 Dose: Not Given Sodium Chloride (Syrex Flush) 5 ml FLUSH Q8HR PRN PRN Reason: Keep Vein Open Discontinued Medications Ceftriaxone Sodium (Rocephin) 1 gm IVPUSH ONETIME ONE Stop: 04/27/18 18:06 Last Admin: 04/27/18 18:19 Dose: 1 gm Cephalexin (Keflex) 500 mg PO Q6HR [facility] Last Admin: 04/29/18 06:17 Dose: Not Given Haloperidol Lactate (Haldol) Confirm Administered Dose 5 mg .ROUTE .STK-MED ONE Stop: 04/27/18 22:46 Last Admin: 04/27/18 23:47 Dose: Not Given Haloperidol Lactate (Haldol) Confirm Administered Dose 5 mg .ROUTE .STK-MED ONE Stop: 04/27/18 23:04 Last Admin: 04/27/18 23:48 Dose: Not Given Haloperidol Lactate (Haldol) 2 mg IM ONETIME ONE Stop: 04/27/18 22:46 Last Admin: 04/27/18 22:50 Dose: 2 mg Haloperidol Lactate (Haldol) 5 mg IM ONETIME ONE Stop: 04/27/18 23:01 Last Admin: 04/28/18 02:04 Dose: Not Given Haloperidol Lactate (Haldol) 2 mg IM ONETIME ONE Stop: 04/27/18 23:01 Last Admin: 04/27/18 23:02 Dose: 2 mg Haloperidol Lactate (Haldol) 2 mg IM ONETIME ONE Stop: 04/28/18 07:30 Last Admin: 04/28/18 07:30 Dose: 2 mg Haloperidol Lactate (Haldol) 2 mg IM ONETIME ONE Stop: 04/28/18 07:53 Last Admin: 04/28/18 08:05 Dose: 2 mg Haloperidol Lactate (Haldol) 2 mg IM ONETIME ONE Stop: 04/28/18 09:22 Last Admin: 04/28/18 09:15 Dose: 2 mg Haloperidol Lactate (Haldol) 1 - 2 mg IM Q1H PRN PRN Reason: Agitation Last Admin: 04/29/18 09:00 Dose: 2 mg Sodium Chloride (Normal Saline) 1,000 mls @ 125 mls/hr IV ASDIRECTED [facility] Risperidone (Risperidal) Confirm Administered Dose 0.25 mg .ROUTE .STK-MED ONE Stop: 04/27/18 22:18 Last Admin: 04/27/18 23:57 Dose: Not Given Sodium Chloride (Syrex Flush) 5 ml FLUSH Q8HR PRN PRN Reason: Keep Vein Open Last Admin: 04/27/18 18:05 Dose: 5 ml - Exam Quality Assessment: No: Supplemental Oxygen, Skin Breakdown General: Alert, Mild Distress. No: Cooperative Neck: Supple Lungs: Clear to Auscultation, Normal Respiratory Effort Cardiovascular: Regular Rate, Regular Rhythm Extremities: No Pedal Edema Skin: Other (Healing abrasion right elbow from prehospitalization fall) Neurological: Normal Tone, Strength Equal Bilateral, Sensation Intact Psy/Mental Status: Agitated. No: Hallucinations - Problem List Review Problem List Initiated/Reviewed/Updated: Yes - My Orders Last 24 Hours: My Active Orders 04/28/18 18:00 cefTRIAXone [Rocephin] 1 gm IM Q24H 04/29/18 05:11 BASIC METABOLIC PANEL,BMP [CHEM] AM 04/29/18 09:23 Haloperidol Lactate [Haldol] 2 - 5 mg IM Q1H PRN - Plan Plan:: HPI: This is an 82 year old male who presented to the ED with concerns of lethargy and hypotension. The patient resides at [facility], an assisted living facility. Per their report patient became more lethargic yesterday and today. The patient suffered a fall 1-1.5 weeks ago and received a bruise to the right chin and skin tear to the right elbow. The patient has a known history of hypertension, alzheimer's dementia, and non-insulin dependent type 2 diabetes mellitus. Per son's report he walks with a walker. The patient was found to have a UTI, acute renal insufficiency, and a right frontal intraparenchymal hematoma. He was admitted for further treatment and monitoring. Pertinent ED workup: Head CT noted 9 x 17 x 10 mm acute right frontal lobe intraparenchymal hematoma. Chest x-ray-no acute processes EKG-sinus bradycardia at 47 bpm; appears unchanged from previous EKG (April 2017 ) that noted marked sinus bradycardia at 46 bpm with LAD, and low voltage QRS UA positive for many bacteria; culture pending BUN 54, creatinine 2.02, GFR 32 Hgb 11.8-appears at baseline Troponin 0.04 Normal neuro examination noted in ED. Update this morning, nursing staff stated patient slept fairly well throughout the night however awoke with acute agitation, flailing arms, uncooperative, difficult to redirect, refusing treatments, Requiring Haldol PRIMARY ASSESSMENT/PLAN: Acute right frontal lobe intraparenchymal hematoma. Repeated head CT no change, stable. Discontinue neurochecks. Can resume aspirin once tolerating PO Alzheimer's dementia with conconmittent mixed delirium state, continue Rocephin , electrolytes good, BP >adequate, head CT stable. UTI. Continue Rocephin IM, monitor for culture results Acute renal insufficiency. Renal indices improving, continue to encourage by mouth fluids for now SECONDARY ASSESSMENT/PLAN: Hypertension, stable. Will continue to monitor. Holding lisinopril and HCTZ at present. Type 2 diabetes mellitus. 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 Primary open angle glaucoma. Continue eye drops. BPH. Incontinent at this time, not taking oral finasteride DVT prophylaxis. None due to current frontal lobe hematoma. Overall treatment plan: Patient 1:1, escalate dose of Haldol, important to attempt initiation of Risperdal, pharmacy to compound Risperdal into PLO form. Will consult with [facility] for likely transfer. Continue IM Rocephin. Hold off on all invasive blood draws while acutely agitated.
[2018-04-29] MEDS ORDERED: risperiDONE 0.25 MG Tab ONE ×2 (11:09→17:11)
[2018-04-29] MEDS: RISPERIDONE 0.25 MG TOP SCH (11:09)
[2018-04-29] MEDS: cefTRIAXone 1 GM Vial IM SCH (17:47)
[2018-04-29] MEDS: Donepezil 10 MG Tab PO SCH (17:54)
[2018-04-29] MEDS ORDERED: RISPERIDONE TOP SCH (18:00)
[2018-04-30] MEDS: Cholecalciferol (Vitamin D3) 1,000 Unit Tab PO SCH (08:01)
[2018-04-30] MEDS: Finasteride 5 MG Tab PO SCH (08:01)
[2018-04-30] MEDS: RISPERIDONE 0.25 MG TOP SCH (08:08)
[2018-04-30] MEDS ORDERED: risperiDONE 0.25 MG Tab ONE (08:08)
[2018-04-30] MEDS: Brimonidine 0.2% Ophth Soln 15 ML Bottle EYEBOTH SCH (08:10)
--- NOTE | 2018-04-30 10:01 | PCM.DCSUM1 ---
Discharge Summary - Hospital Course Diagnosis: Stroke: No - Discharge Data Discharge Date: 04/30/18 Discharge Disposition: DC/Tfer to SNF 03 Condition: Good - Patient Summary/Data Consults: Consultations 04/27/18 21:45 Consult to Councilperson [CONS] Routine - Patient Instructions Diet: Diabetic Diet Activity: As Tolerated Driving: Do Not Drive Showering/Bathing: May Shower Notify Provider of: Nausea and/or Vomiting (report increased agitation) - Discharge Plan *PRESCRIPTION DRUG MONITORING PROGRAM REVIEWED*: Not Applicable *COPY OF PRESCRIPTION DRUG MONITORING REPORT IN PATIENT ALLEY: Not Applicable Prescriptions/Med Rec: Aspirin [Leigha Chewable Aspirin] 81 mg PO DAILY #30 tab.chew Brimonidine Tartrate [Brimonidine Tartrate 0.2% Ophth Soln] 1 drop EYEBOTH BID@ 0830,1800 #1 bottle Cholecalciferol (Vitamin D3) [Vitamin D3] 2,000 unit PO DAILY #30 capsule Ciprofloxacin HCl [Cipro] 500 mg PO BID #8 tablet Donepezil HCl [Aricept] 10 mg PO DAILY@1800 #30 tablet Finasteride [Proscar] 5 mg PO DAILY #30 tablet Hydrochlorothiazide 12.5 mg PO DAILY #30 cap Memantine HCl [Namenda] 10 mg PO BID@0830,1800 #30 tablet Propylene Glycol/Peg 400 [Lubricant Eye Drops] 1 drop EYEBOTH QID PRN #15 drops PRN Reason: Dry Eyes risperiDONE [Risperdal] 0.25 mg PO DAILY@1800 #30 tablet risperiDONE [RisperiDAL] 0.125 mg PO DAILY #30 tablet Home Medications: Home Meds Aspirin [Leigha Chewable Aspirin] 81 mg PO DAILY #30 tab.chew 04/30/18 [Rx] Brimonidine Tartrate [Brimonidine Tartrate 0.2% Ophth Soln] 1 drop EYEBOTH BID@ 0830,1800 #1 bottle 04/30/18 [Rx] Cholecalciferol (Vitamin D3) [Vitamin D3] 2,000 unit PO DAILY #30 capsule [Rx] Ciprofloxacin HCl [Cipro] 500 mg PO BID #8 tablet 04/30/18 [Rx] Donepezil HCl [Aricept] 10 mg PO DAILY@1800 #30 tablet 04/30/18 [Rx] Finasteride [Proscar] 5 mg PO DAILY #30 tablet 07/12/18 [Rx] Hydrochlorothiazide 12.5 mg PO DAILY #30 cap 04/30/18 [Rx] Memantine HCl [Namenda] 10 mg PO BID@0830,1800 #30 tablet 04/30/18 [Rx] Propylene Glycol/Peg 400 [Lubricant Eye Drops] 1 drop EYEBOTH QID PRN #15 drops 04/30/18 [Rx] risperiDONE [Risperdal] 0.25 mg PO DAILY@1800 #30 tablet 04/30/18 [Rx] risperiDONE [RisperiDAL] 0.125 mg PO DAILY #30 tablet 04/30/18 [Rx] - Discharge Summary/Plan Comment DC Time >30 min.: Yes Discharge Summary/Plan Comment: Final diagnosis, primary UTI frontal lobe intraparenchymal hematoma--doubtful if acute Acute delirium, mixed type Renal insufficiency Alzheimer's disease with dementia Final diagnosis, secondary HTN, HCTZ, holding lisinopril on discharge T2DM, diet controlled Blind, OS Retinal vein branch occlusion, OD Open angle glaucoma, primary History 82 year old male who presented to the ED with concerns of lethargy and hypotension. The patient initially resided at [facility], an assisted living facility. Per their report patient became more lethargic today prior and day of admission. The patient suffered a fall approximately 10 days prior to initial presentation received a bruise to the right chin and skin tear to the right elbow--was on aspirin 81 mg by mouth daily. The patient has a known history of hypertension, alzheimer's dementia, diet-controlled T2DM. Per son's report he ambulates with a walker. The patient was found to have a UTI, acute renal insufficiency, and a right frontal intraparenchymal hematoma. He was admitted for further treatment and monitoring. Pertinent ED findings prior to admission Head CT noted 9 x 17 x 10 mm acute right frontal lobe intraparenchymal hematoma. Chest x-ray-no acute processes EKG-sinus bradycardia at 47 bpm; appears unchanged from previous EKG (April 2017 ) that noted marked sinus bradycardia at 46 bpm with LAD, low voltage QRS UA positive for many bacteria; BUN 54, creatinine 2.02, GFR 32 Hgb 11.8-appears at baseline Troponin 0.04 Normal neuro examination noted in ED. Hospital course Although patient all is nearing his baseline mentation on discharge he was significantly confused, combative, uncooperative with acute delirium throughout his hospital stay, combative to staff, ailing arms, uncooperative, acute agitated fluctuating in mentation status and altered levels of consciousness making it difficult to repeat head CT at a timely manner. Head CT was eventually repeated with no changes from initial. Neurology was consulted by the ED staff with orders to repeat CT if able and continue neuro checks. Although patient was quite agitated neurologically he had no change--no focal deficit. He was started on Rocephin IV for his UTI however patient pulled out IV and it was changed to IM. He was discharged on Cipro. IV fluids were initially given however after patient pulled out IV fluids were encouraged which eventually improved and his renal indices. His vital signs remain stable, afebrile, CT measures were employed. Urine culture showed greater than 100,000 positive cocci sensitivity report pending on discharge. Many of his medications were held however his Risperdal was compounded into PLO form and after this was administered the patient had a dramatic turnaround in his mentation status became quite cooperative upon discharge--very near his baseline mentation status. Medication changes/adjustments on discharge Cipro 500 mg by mouth twice a day 4 days,(newly added) Lisinopril, holding on discharge as BP normal renal indices improving. Provider to determine start back update Continue all other medications--including aspirin per neurology CODE STATUS, no intubation however CPR, defibrillation, medications okay - Review of Systems General: Denies: Fever, Weakness Pulmonary: Denies: Shortness of Breath, Cough, Sputum Cardiovascular: Denies: Chest Pain, Palpitations, Dyspnea on Exertion Gastrointestinal: Reports: No Symptoms Genitourinary: Reports: Incontinence Musculoskeletal: Reports: Back Pain Skin: Reports: Bruising Neurological: Reports: Confusion, Pre-Existing Deficit, Difficulty Walking. Denies: Headache, Numbness, Seizure, Tingling, Weakness, Change in Speech Psychiatric: Reports: Confusion. Denies: Agitation - Patient Data Vitals - Most Recent: Last Vital Signs Temp 97.3 F 04/30/18 08:41 Pulse 73 04/29/18 17:49 Resp 16 04/30/18 08:41 BP 122/71 04/30/18 08:41 Pulse Ox 97 04/30/18 08:41 Orthostatic Blood Pressure [ 150/68 Sitting] Orthostatic Blood Pressure [ 136/74 Supine] Weight - Most Recent: 190 lb I&O - Last 24 hours: Intake & Output 04/29/18 04/30/18 04/30/18 22:59 06:59 14:59 Intake Total 680 0 Balance 680 0 MILKA Results - Last 24 hrs: Microbiology 04/27/18 18:00 Urine Culture - Final Urine, Catheterized Med Orders - Current: Current Medications Artificial Tears (Refresh Tears 0.5%) 0 ml EYEBOTH QID PRN PRN Reason: Dry Eyes Brimonidine Tartrate (Brimonidine Tartrate 0.2% Ophth Soln) 0 ml EYEBOTH BID [facility] Last Admin: 04/30/18 08:10 Dose: 1 dose Ceftriaxone Sodium (Rocephin) 1 gm IM Q24H [facility] Last Admin: 04/29/18 17:47 Dose: 1 gm Cholecalciferol (Vitamin D3) 2,000 units PO DAILY [facility] Last Admin: 04/30/18 08:01 Dose: 2,000 units Donepezil HCl (Aricept) 10 mg PO DAILY@1800 [facility] Last Admin: 04/29/18 17:54 Dose: 10 mg Finasteride (Proscar) 5 mg PO DAILY [facility] Last Admin: 04/30/18 08:01 Dose: 5 mg Haloperidol Lactate (Haldol) 2 - 5 mg IM Q1H PRN PRN Reason: Agitation Risperidone 0.25mg (Plo Gel) 0 each TOP DAILY [facility] Last Admin: 04/30/18 08:08 Dose: 1 each Risperidone Plo Gel (0.25mg/0.25ml) 0 each TOP DAILY@1800 [facility] Last Admin: 04/29/18 17:11 Dose: 1 each Sodium Chloride (Syrex Flush) 5 ml FLUSH Q8HR PRN PRN Reason: Keep Vein Open Discontinued Medications Ceftriaxone Sodium (Rocephin) 1 gm IVPUSH ONETIME ONE Stop: 04/27/18 18:06 Last Admin: 04/27/18 18:19 Dose: 1 gm Cephalexin (Keflex) 500 mg PO Q6HR [facility] Last Admin: 04/29/18 06:17 Dose: Not Given Haloperidol Lactate (Haldol) Confirm Administered Dose 5 mg .ROUTE .STK-MED ONE Stop: 04/27/18 22:46 Last Admin: 04/27/18 23:47 Dose: Not Given Haloperidol Lactate (Haldol) Confirm Administered Dose 5 mg .ROUTE .STK-MED ONE Stop: 04/27/18 23:04 Last Admin: 04/27/18 23:48 Dose: Not Given Haloperidol Lactate (Haldol) 2 mg IM ONETIME ONE Stop: 04/27/18 22:46 Last Admin: 04/27/18 22:50 Dose: 2 mg Haloperidol Lactate (Haldol) 5 mg IM ONETIME ONE Stop: 04/27/18 23:01 Last Admin: 04/28/18 02:04 Dose: Not Given Haloperidol Lactate (Haldol) 2 mg IM ONETIME ONE Stop: 04/27/18 23:01 Last Admin: 04/27/18 23:02 Dose: 2 mg Haloperidol Lactate (Haldol) 2 mg IM ONETIME ONE Stop: 04/28/18 07:30 Last Admin: 04/28/18 07:30 Dose: 2 mg Haloperidol Lactate (Haldol) 2 mg IM ONETIME ONE Stop: 04/28/18 07:53 Last Admin: 04/28/18 08:05 Dose: 2 mg Haloperidol Lactate (Haldol) 2 mg IM ONETIME ONE Stop: 04/28/18 09:22 Last Admin: 04/28/18 09:15 Dose: 2 mg Haloperidol Lactate (Haldol) 1 - 2 mg IM Q1H PRN PRN Reason: Agitation Last Admin: 04/29/18 09:00 Dose: 2 mg Sodium Chloride (Normal Saline) 1,000 mls @ 125 mls/hr IV ASDIRECTED [facility]ACY Risperidone (Risperidal) 0.25 mg PO DAILY@1800 [facility] Last Admin: 04/28/18 19:20 Dose: Not Given Risperidone (Risperidal) 0.125 mg PO DAILY [facility] Last Admin: 04/29/18 09:00 Dose: Not Given Risperidone (Risperidal) Confirm Administered Dose 0.25 mg .ROUTE .STK-MED ONE Stop: 04/27/18 22:18 Last Admin: 04/27/18 23:57 Dose: Not Given Sodium Chloride (Syrex Flush) 5 ml FLUSH Q8HR PRN PRN Reason: Keep Vein Open Last Admin: 04/27/18 18:05 Dose: 5 ml - Exam Quality Assessment: Denies: Supplemental Oxygen General: Reports: Alert, Cooperative. Denies: Oriented Neck: Reports: Supple Lungs: Reports: Clear to Auscultation, Normal Respiratory Effort Cardiovascular: Reports: Regular Rate, Regular Rhythm Extremities: No Pedal Edema Skin: Reports: Other (Skin abrasion right elbow) Wound/Incisions: Reports: Healing Well Neurological: Reports: Strength Equal Bilateral, Cranial Nerves Intact
[2018-04-30] MEDS: cefTRIAXone 1 GM Vial IM SCH (10:24)
== END 2018-04-30 11:20 | DRG 86 ==
LOC: KA.ED 17:04 → KA.MS 18:59
PROVIDERS: ADMIT Physician Assistant Medical; ATTEND Family Medicine
DX: S00.83XA Contusion of other part of head, initial encounter (principal); S06.340A Traumatic hemorrhage of right cerebrum without loss of consciousness, initial encounter; N39.0 Urinary tract infection, site not specified; F05 Delirium due to known physiological condition; R53.83 Other fatigue; H34.8112 Central retinal vein occlusion, right eye, stable; W19.XXXA Unspecified fall, initial encounter; Y92.099 Unspecified place in other non-institutional residence as the place of occurrence of the external cause; N28.9 Disorder of kidney and ureter, unspecified; G30.9 Alzheimer's disease, unspecified; F02.80 Dementia in other diseases classified elsewhere, unspecified severity, without behavioral disturbance, psychotic disturbance, mood disturbance, and anxiety; I10 Essential (primary) hypertension; E11.9 Type 2 diabetes mellitus without complications; H54.40 Blindness, one eye, unspecified eye; H40.1190 Primary open-angle glaucoma, unspecified eye, stage unspecified; Z79.899 Other long term (current) drug therapy
CPT/HCPCS: 36415; 70450; 71045; 80048; 80053; 81001; 82550; 82553; 83880; 84484; 85025; 87086; 87088; 93005; 96374; 99285; A9270-GY; J0696; J1630

== ENCOUNTER 2018-05-10 14:30 | Emergency (ER) | payer MEDICARE, OTHER, MEDICAID ==
[2018-05-10] MEDS: Haloperidol Lactate 5 MG/ML SDV ONE ×2 (15:23→17:14)
[2018-05-10] MEDS ORDERED: Haloperidol Lactate 5 MG/ML SDV IM PRN (15:23)
[2018-05-10 15:37] LABS: ANION GAP 15.1 mmol/L (5-15)
[2018-05-10] MEDS ORDERED: Metoprolol Tartrate 5 MG/5 ML SDV IVPUSH ONE ×3 (15:52→15:54)
[2018-05-10] MEDS ORDERED: LORazepam 2 MG/ML SDV IVPUSH ONE (15:54)
--- NOTE | 2018-05-10 17:12 | EDM.PDOC ---
ED HPI GENERAL MEDICAL PROBLEM - General Chief Complaint: Cardiovascular Problem Stated Complaint: TACHY Time Seen by Provider: 05/10/18 14:35 Source of Information: Reports: EMS, Care Home Records, Old Records History Limitations: Reports: Altered Mental Status, Combative/Threatening, Uncooperative - History of Present Illness INITIAL COMMENTS - FREE TEXT/NARRATIVE: 82-year-old male is brought in by EMS for tachycardic heart rate. He has a history of Alzheimer's dementia and is noncontributory. He is combative and agitated. He is had a recent hospital admission for urinary tract infection and a and head trauma with hematoma. Prior to his hospitalization he was living in an assisted living. He is currently at the [facility]. His past medical history and information is entirely obtained through his prior hospitalization and charts. Onset: Today, Unknown/Unsure Duration: Constant - Related Data Allergies Allergy/AdvReac Type Severity Reaction Status Date / Time No Known Allergies Allergy Verified 05/10/18 15:34 Home Meds: Home Meds Cholecalciferol (Vitamin D3) [Vitamin D3] 2,000 unit PO DAILY #30 capsule [Rx] Ciprofloxacin HCl [Cipro] 500 mg PO BID #8 tablet 04/30/18 [Rx] Donepezil HCl [Aricept] 10 mg PO DAILY@1800 #30 tablet 04/30/18 [Rx] Finasteride [Proscar] 5 mg PO DAILY #30 tablet 04/30/18 [Rx] Memantine HCl [Namenda] 10 mg PO BID@0830,1800 #30 tablet 04/30/18 [Rx] hydroCHLOROthiazide [Hydrochlorothiazide] 12.5 mg PO DAILY #30 cap 04/30/18 [Rx] risperiDONE [Risperdal] 0.25 mg PO DAILY@1800 #30 tablet 04/30/18 [Rx] Aspirin 81 mg PO DAILY 05/10/18 [History] Brimonidine Tartrate [Brimonidine Tartrate 0.2% Ophth Soln] 1 drop EYEBOTH BID 05/10/18 [History] Propylene Glycol/Peg 400 [Lubricant Eye Drops] 1 drop EYEBOTH QID 05/10/18 [ History] risperiDONE [RisperiDAL] 0.125 mg PO 0800 05/10/18 [History] Past Medical History HEENT History: Reports: Glaucoma, Hard of Hearing Cardiovascular History: Reports: Hypertension Genitourinary History: Reports: Acute Renal Failure, Urinary Incontinence Musculoskeletal History: Reports: Arthritis Neurological History: Reports: Alzheimers Disease Other Neuro History: sundowners Psychiatric History: Reports: Alzheimers Disease Endocrine/Metabolic History: Reports: Diabetes, Type II Social & Family History - Family History Family Medical History: Unobtainable - Caffeine Use Caffeine Use: Reports: None ED ROS GENERAL - Review of Systems Review Of Systems: Unable To Obtain ED EXAM, GENERAL - Physical Exam Exam: See Below Exam Limited By: Other (Exam is limited due to patient's Alzheimer's dementia agitation and combativeness) General Appearance: Alert Eye Exam: Right Eye: PERRL, Left Eye: Abnormal Pupil (Blindness in the left eye) , Bilateral Eye: EOMI Head: Atraumatic, Normocephalic Neck: Supple. No: Lymphadenopathy (L), Lymphadenopathy (R) Respiratory/Chest: Lungs Clear Cardiovascular: Tachycardia Peripheral Pulses: 1+: Dorsalis Pedis (L), Dorsalis Pedis (R), 2+: Carotid (L), Carotid (R), Radial (L), Radial (R) GI/Abdominal: Soft, Non-Tender Rectal (Males) Exam: Normal Exam Back Exam: Normal Inspection, Full Range of Motion Extremities: Normal Inspection. No: Pedal Edema Neurological: Alert, No Motor/Sensory Deficits, Confused, Disoriented, Other Psychiatric: Depressed Mood, Flat Affect, Other (Agitated) Skin Exam: Warm, Dry, Intact, Normal Color Lymphatic: No Adenopathy EKG INTERPRETATION Rhythm: Other (Supraventricular tachycardia) Rate (Beats/Min): 151 ST-T: Elevated QT: Normal Comparison: NA - No Prior EKG EKG Interpretation Comments: Supraventricular tachycardia Inferior infarct age undetermined Abnormal ECG Course - Vital Signs Last Recorded V/S: Last Vital Signs Temp 98.4 F 05/10/18 14:30 Pulse 158 H 05/10/18 14:30 Resp 20 05/10/18 14:30 BP 85/39 L 05/10/18 14:30 Pulse Ox 92 L 05/10/18 14:30 - Orders/Labs/Meds Orders: Active Orders 24 hr Category Date Time Status CXR [Chest 1V Frontal] [CR] Stat Exams 05/10/18 15:08 Taken LACTIC ACID [CHEM] Stat Lab 05/10/18 16:58 Received Labs: Laboratory Tests 05/10/18 05/10/18 05/10/18 Range/Units 14:55 14:55 14:55 WBC 18.6 H D (5.0-10.0) 10^3/uL RBC 4.22 L (4.50-6.00) 10^6/uL Hgb 12.6 L (13.0-17.0) g/dL Hct 37.8 L (40.0-52.0) % MCV 89.6 (82.0-92.0) fL MCH 29.8 (27.0-31.0) pg MCHC 33.3 (32.0-36.0) g/dL RDW 11.9 (11.5-14.5) % Plt Count 246 D (150-300) 10^3/uL MPV 7.9 (7.4-10.4) fL Neut % (Auto) 84.3 H (50.0-70.0) % Lymph % (Auto) 9.5 L (20.0-40.0) % [place] % (Auto) 5.6 (2.0-8.0) % Eos % (Auto) 0.2 L (1.0-3.0) % Baso % (Auto) 0.4 (0.0-1.0) % Neut # (Auto) 15.7 H (2.5-7.0) 10^3/uL Lymph # (Auto) 1.8 (1.0-4.0) 10^3/uL [place] # (Auto) 1.0 H (0.1-0.8) 10^3/uL Eos # (Auto) 0.0 L (0.1-0.3) 10^3/uL Baso # (Auto) 0.1 (0.0-0.1) 10^3/uL PT 12.5 H (8.9-11.4) SEC INR 1.2 H (0.9-1.1) Sodium 142 (136-145) mmol/L Potassium 4.2 (3.3-5.3) mmol/L Chloride 103 (98-115) mmol/L Carbon Dioxide 28.1 (21.0-32.0) mmol/L Anion Gap 15.1 H (5-15) mmol/L BUN 60 H* (6-25) mg/dL Creatinine 2.79 H (0.51-1.17) mg/dL Est Cr Clr Drug Dosing 19.09 mL/min Estimated GFR (MDRD) 22 mL/min Glucose 178 mg/dL Calcium 9.0 (8.7-10.3) mg/dL Troponin I 2.83 H* (0.00-0.070) ng/mL B-Natriuretic Peptide 463 H (0-100) pg/mL Meds: Medications Discontinued Medications Generic Name Dose Route Start Last Admin Trade Name Freq PRN Reason Stop Dose Admin Haloperidol Lactate Confirm 05/10/18 15:23 Haldol Administered 05/10/18 15:24 Dose 5 mg .ROUTE .STK-MED ONE Lorazepam 1 mg 05/10/18 15:54 Ativan IVPUSH 05/10/18 15:55 ONETIME ONE Metoprolol Tartrate 5 mg 05/10/18 15:52 Lopressor IVPUSH 05/10/18 15:53 ONETIME ONE Metoprolol Tartrate 5 mg 05/10/18 15:53 Lopressor IVPUSH 05/10/18 15:54 ONETIME ONE Metoprolol Tartrate 5 mg 05/10/18 15:54 Lopressor IVPUSH 05/10/18 15:55 ONETIME ONE - Re-Assessments/Exams Free Text/Narrative Re-Assessment/Exam: 05/10/18 17:16 Patient's heart rate responded at a rate of 150 bpm down to 60 bpm with a total of 15 mg IV metoprolol Patient was given 5 of Haldol and 1 of Ativan for his combativeness and agitation which was successful for calming the patient 1 L of fluid bolus was given a second liter was started running at 150 an hour. His blood pressures were maintained at 90/40. Departure - Departure Time of Disposition: 17:19 Disposition: DC/Tfer to Critical Access 66 Reason for Transfer *Q: Other Condition: Poor Clinical Impression: Supraventricular tachycardia Acute myocardial infarction Qualifiers: Myocardial infarction type: ST elevation myocardial infarction Involved coronary artery: other inferior wall coronary artery Qualified Code(s): I21.19 - ST elevation (STEMI) myocardial infarction involving other coronary artery of inferior wall Instructions: Supraventricular Tachycardia, Adult, Heart Attack, [id number] Referrals: Mao,Timbo M, [employer]IOTELEGRAPH OPERATOR SERVICER [Primary Care Provider] - Forms: ED Department Discharge, Interfacility Transfer EMTALA - My Orders Last 24 Hours: My Active Orders 05/10/18 15:08 CXR [Chest 1V Frontal] [CR] Stat 05/10/18 16:58 LACTIC ACID [CHEM] Stat - Assessment/Plan Last 24 Hours: My Active Orders 05/10/18 15:08 CXR [Chest 1V Frontal] [CR] Stat 05/10/18 16:58 LACTIC ACID [CHEM] Stat Assessment:: Supraventricular tachycardia Elevated troponin Inferior infarct Alzheimer's dementia Agitation Renal disease Elevated leukocytosis with a history of recent urinary tract infection History of right frontal intraparenchynal hematoma [id number] diabetes mellitus Plan: Patient is not manageable in his current state. He is a no intubation but chest compressions and medications are desired for his CODE STATUS. Patient needs critical care access and management and therefore is transferred up to [facility]. Patient was transferred by ground ambulance in stable condition
== END 2018-05-10 17:15 | disposition critical access hospital (66) ==
LOC: KA.ED 14:30
DX: I21.19 ST elevation (STEMI) myocardial infarction involving other coronary artery of inferior wall (principal); I10 Essential (primary) hypertension; I47.1 Supraventricular tachycardia; R79.89 Other specified abnormal findings of blood chemistry; E11.9 Type 2 diabetes mellitus without complications; G30.9 Alzheimer's disease, unspecified; F02.80 Dementia in other diseases classified elsewhere, unspecified severity, without behavioral disturbance, psychotic disturbance, mood disturbance, and anxiety; Z79.899 Other long term (current) drug therapy; Z79.82 Long term (current) use of aspirin
CPT/HCPCS: 36415; 71045; 80048; 83605; 83880; 84484; 85025; 85610; 96372; 96374; 96375; 96376; 99284; 99285; J1630; J2060; J3490